=== PATIENT | female | born 1950 | race Caucasian/White ===

== ENCOUNTER 2016-09-23 09:47 | Emergency (ER) | payer MEDICARE, OTHER ==
[~2016-09-23] VITALS: Ht 162.6 cm; Wt 79.8 kg
[2016-09-23 09:50] VITALS: BP 134/82
[2016-09-23] MEDS ORDERED: ASPIRIN81 MG PO (10:02)
[2016-09-23] MEDS ORDERED: VITAMIN D5000 UNIT PO (10:02)
[2016-09-23] MEDS ORDERED: FOSINOPRIL20 MG PO (10:03)
[2016-09-23] MEDS ORDERED: METFORMIN500 MG PO (10:04)
[2016-09-23] MEDS ORDERED: VESICARE5 M1 PO (10:05)
[2016-09-23] MEDS ORDERED: CRESTOR5 M1 PO (10:05)
[2016-09-23] MEDS ORDERED: LABETALOL HCL100 MG PO (10:06)
[2016-09-23] MEDS ORDERED: PRILOSEC20 MG/CAP PO (10:06)
== END 2016-09-23 10:31 | disposition home or self-care (01) ==
LOC: ED 09:47
DX: S09.90XA Unspecified injury of head, initial encounter (principal); S80.11XA Contusion of right lower leg, initial encounter; W01.10XA Fall on same level from slipping, tripping and stumbling with subsequent striking against unspecified object, initial encounter; Y93.89 Activity, other specified; Y92.003 Bedroom of unspecified non-institutional (private) residence as the place of occurrence of the external cause

== ENCOUNTER 2017-05-07 21:43 | Emergency (ER) | payer MEDICARE, OTHER ==
[~2017-05-07] VITALS: Ht 162.6 cm; Wt 77.4 kg
[~2017-05-07 21:43] MED LIST: ASPIRIN81 MG PO; CRESTOR5 M1 PO; FOSINOPRIL20 MG PO; LABETALOL HCL100 MG PO; METFORMIN500 MG PO; PRILOSEC20 MG/CAP PO; VESICARE5 M1 PO; VITAMIN D5000 UNIT PO
[2017-05-07 23:46] LABS: URINE BILIRUBIN - DIPSTICK NEGATIVE (NEGATIVE); URINE BLOOD DIPSTICK TRACE-INTACT (NEGATIVE); URINE COLOR YELLOW; URINE GLUCOSE - DIPSTICK NEGATIVE (NEGATIVE); URINE KETONE NEGATIVE (NEGATIVE); URINE PROTEIN - DIPSTICK NEGATIVE (NEG-TRACE); URINE SPECIFIC GRAVITY <=1.005; URINE UROBILINOGEN - DIPSTICK 0.2 E.U./dL (0.2)
[2017-05-07 23:46] LABS: HEMATOCRIT 35.9 % (37.0-47.0); HEMOGLOBIN 11.3 g/dl (12.0-16.0); IMMATURE GRANULOCYTES 0.2 % (0.0-1.0); MEAN CORPUSCULAR HGB 25.8 pG CALC (26.0-32.0); MEAN CORPUSCULAR HGB CONC 31.5 g/L CALC (32.0-36.0); NEUT# 5.61 thou/uL (2.00-7.15); RED BLOOD COUNT 4.38 mill/uL (4.20-5.60); RED CELL DISTRI WIDTH 15.9 % (11.5-15.5)
[2017-05-07 23:47] LABS: URINE CLARITY CLOUDY; URINE LEUK ESTERASE MODERATE (NEGATIVE); URINE NITRITE - DIPSTICK POSITIVE (Negative)
[2017-05-07 23:55] LABS: URINE BACTERIA MODERATE hpf; URINE MUCUS FEW hpf (NONE-FEW); URINE SQUAMOUS EPITHELIAL CELL FEW EPI/hpf (0-FEW)
[2017-05-08 00:03] LABS: PROTHROMBIN TIME 10.8 SECONDS (9.0-12.5)
[2017-05-08 00:05] LABS: ALBUMIN 4.2 g/dL (3.2-5.0); ALKALINE PHOSPHATASE 105 u/l (38-126); ANION GAP 17 (6-22 (CALC)); BILIRUBIN, TOTAL 0.3 mg/dL (0.0-1.4); BUN 13 mg/dL (8-23); BUN/CREATININE RATIO 21 (12-20 (CALC)); CALCIUM 9.9 mg/dL (8.4-10.2); CARBON DIOXIDE 24 mmol/l (22-30); CHLORIDE 103 mmol/l (95-108); CREATININE 0.7 mg/dL (0.5-1.0); GFR > 60 ML/MIN (>=60 (CALC)); GFR FOR AFR.AMER. > 60 ML/MIN (>=60 (CALC)); GLUCOSE 127 mg/dL (82-115); POTASSIUM 4.2 mmol/l (3.5-5.1); SGOT/AST 47 u/l (9-36); SGPT/ALT 42 u/l (11-66); SODIUM 140 mmol/l (137-146); TOTAL PROTEIN 7.3 g/dL (6.3-8.2)
[2017-05-08] MEDS ORDERED: MEDDOSEPAK PO (00:38)
[2017-05-08] MEDS ORDERED: BENADRYL 50MG C50 MG PO (00:38)
[2017-05-08] MEDS ORDERED: CIPROFLOXACN500 MG PO (04:13)
[2017-05-08 04:21] VITALS: BP 145/71
== END 2017-05-08 01:18 | disposition home or self-care (01) ==
LOC: ED 21:43
PROVIDERS: Emergency Medicine
DX: I77.6 Arteritis, unspecified (principal); N39.0 Urinary tract infection, site not specified; B96.4 Proteus (mirabilis) (morganii) as the cause of diseases classified elsewhere

== ENCOUNTER 2017-05-20 04:06 | Observation (INO) | payer MEDICARE, OTHER ==
[~2017-05-20] VITALS: Ht 162.6 cm; Wt 75.0 kg
[~2017-05-20 04:06] MED LIST changes: +BENADRYL 50MG C50 MG PO; +CIPROFLOXACN500 MG PO; +MEDDOSEPAK PO
--- NOTE | 2017-05-20 04:10 | NUR ---
PATIENT TO TREATMENT AREA. UNDRESSED INTO A GOWN. PLACED ON MONITOR. TRIAGE COMPLETED AT BEDSIDE. AWAITING MD STONE.
[2017-05-20] MEDS ORDERED: AMLODIPINE5 MG PO (04:30)
[2017-05-20] MEDS ORDERED: CALTRATE 600+D1 CHW PO (04:32)
[2017-05-20 05:17] LABS: URINE BILIRUBIN - DIPSTICK NEGATIVE (NEGATIVE); URINE BLOOD DIPSTICK NEGATIVE (NEGATIVE); URINE COLOR YELLOW; URINE GLUCOSE - DIPSTICK NEGATIVE (NEGATIVE); URINE KETONE NEGATIVE (NEGATIVE); URINE LEUK ESTERASE NEGATIVE (NEGATIVE); URINE PROTEIN - DIPSTICK NEGATIVE (NEG-TRACE); URINE UROBILINOGEN - DIPSTICK 0.2 E.U./dL (0.2)
[2017-05-20 05:18] LABS: URINE CLARITY CLOUDY; URINE NITRITE - DIPSTICK POSITIVE (Negative)
[2017-05-20 05:23] LABS: URINE RBC 0-2 RBC/hpf (0-5); URINE SQUAMOUS EPITHELIAL CELL FEW EPI/hpf (0-FEW)
[2017-05-20 05:24] LABS: URINE BACTERIA MODERATE hpf; URINE MUCUS FEW hpf (NONE-FEW)
[2017-05-20 05:25] LABS: HEMATOCRIT 36.5 % (37.0-47.0); HEMOGLOBIN 11.5 g/dl (12.0-16.0); IMMATURE GRANULOCYTES 1.6 % (0.0-1.0); MEAN CELL VOLUME 81.1 fL CALC (80.0-100.0); MEAN CORPUSCULAR HGB 25.6 pG CALC (26.0-32.0); MEAN CORPUSCULAR HGB CONC 31.5 g/L CALC (32.0-36.0); NEUT# 8.85 thou/uL (2.00-7.15); RED BLOOD COUNT 4.5 mill/uL (4.20-5.60); RED CELL DISTRI WIDTH 16.3 % (11.5-15.5)
[2017-05-20 05:29] LABS: ALBUMIN 4.3 g/dL (3.2-5.0); ALKALINE PHOSPHATASE 106 u/l (38-126); AMYLASE 57 u/l (30-110); ANION GAP 18 (6-22 (CALC)); BILIRUBIN, TOTAL 0.4 mg/dL (0.0-1.4); BUN 10 mg/dL (8-23); BUN/CREATININE RATIO 15 (12-20 (CALC)); CALCIUM 10.1 mg/dL (8.4-10.2); CARBON DIOXIDE 24 mmol/l (22-30); CHLORIDE 104 mmol/l (95-108); CREATININE 0.7 mg/dL (0.5-1.0); GFR > 60 ML/MIN (>=60 (CALC)); GFR FOR AFR.AMER. > 60 ML/MIN (>=60 (CALC)); GLUCOSE 141 mg/dL (82-115); LIPASE 85 u/l (23-300); POTASSIUM 3.9 mmol/l (3.5-5.1); SGOT/AST 33 u/l (9-36); SGPT/ALT 37 u/l (11-66); SODIUM 142 mmol/l (137-146); TOTAL PROTEIN 7.6 g/dL (6.3-8.2)
[2017-05-20 05:42] LABS: MYOGLOBIN 23 ng/mL (0 - 62)
--- NOTE | 2017-05-20 06:14 | NUR ---
MED/SURG REFUSED REPORT FOR RM 262
--- NOTE | 2017-05-20 06:20 | NUR ---
NURSING HEATING ELEMENT WINDER CALLED, RM CHANGED TO ICU OVERFLOW. ICU REFUSED REPORT.
--- NOTE | 2017-05-20 06:27 | NUR ---
PT RELATED SLIGHT CHEST DISCOMFORT REMAINS. NO DISTRESS NOTED.
--- NOTE | 2017-05-20 06:58 | NUR ---
REPORT CALLED TO [facility].
[2017-05-20 07:00] VITALS: BP 104/68
--- NOTE | 2017-05-20 07:00 | NUR ---
PT TO ROOM VIA STRETCHER ACCOMPANIED BY STAFF; PT AMBULATORY TO BED WITH STAND BY ASSIST; PT A/O X3; PT C/O EPIGASTRIC AND MID BACK PAIN "ACHY" PAIN 5/10, WILL NOTIFY MD FOR ORDERS; VS AND WT OBTAINED; PT ORIENTED TO ROOM AND CALL SYSTEM; LUNGS CLEAR THROUGHOUT; UROSTOMY IN PLACE, MODERATE AMOUNT OF CLEAR YELLOW URINE NOTED; PT ORIENTED TO ROOM AND CALL SYSTEM; CALL DALY WITHIN REACH; WILL CONTINUE TO MONITOR.
--- NOTE | 2017-05-20 07:05 | NUR ---
PT TO ICU 6 WITH RN ON MONITOR.
--- NOTE | 2017-05-20 09:19 | NUR ---
DR. AGUILAR IN TO SEE PT; PLAN OF CARE DISCUSSED
[2017-05-20 11:46] VITALS: BP 117/69
--- NOTE | 2017-05-20 12:12 | NUR ---
ELECTRICAL PROSPECTING OBSERVER IN FOR BLOOD DRAW
--- NOTE | 2017-05-20 14:29 | NUR ---
SPOUSE IN WITH PT; UROSTOMY DEVICE CHANGE BY SPOUSE; NO COMPLAINTS VOICED AT THIS TIME; WILL CONTINUE TO MONITOR.
--- NOTE | 2017-05-20 15:30 | NUR ---
PT TRANSFERED TO ROOM 262 VIA WC ACCOMPANIED BY STAFF; REPORT GIVEN TO RUDY FRANCO
[2017-05-20 15:38] VITALS: BP 114/76
--- NOTE | 2017-05-20 16:08 | NUR ---
PT ARRIVED TO FLOOR @ 1532 VIA WHEELCHAIR ACCOMPANIED BY KRISTIN MCKEE. PT AMBULATES WITH STANDBY ASSIST. REPORTS MILD EPIGASTRIC DISCOMFORT, MUCH RELIEVED SINCE MAALOX ADMINISTRATION. OTHERWISE NO COMPLAINTS. PT ORIENTED TO ROOM AND EQUIPMENT. PLAN OF CARE DISCUSSED. CALL LIGHT REVIEWED AND IN REACH. PT STATES UNDERSTANDING.
--- NOTE | 2017-05-20 16:37 | NUR ---
Patient said they feel better with the chest pain. Patient also told me that they just had a UTI a short time ago. c
[2017-05-20 19:00] VITALS: BP 110/73
--- NOTE | 2017-05-20 19:45 | NUR ---
BEDSIDE REPORT RECEIVED FROM RUDY FRANCO. PT RESTING IN BED WATCHING TV. ALERT AND ORIENTED X 3. DENIES PAIN CURRENTLY. RESPIRATIONS EVEN AND UNLABORED. UROSTOMY SITE CLEAR AND DRESSING CDI. ATTACHED TO BSDB AT THIS TIME DAJA CLEAR YELLOW URINE WITH SEDIMENT IN ADEQUATE AMOUNTS. STATES THAT THIS IS NORMAL FOR HER. PLAN OF CARE DISCUSSED. PT ENCOURAGED TO VERBALIZE CONCERNS. STATES UNDERSTANDING. SAFETY MEAURES IN PLACE. CALL LIGHT SYSTEM REVIEWED AND IN REACH.
[2017-05-20 22:13] LABS: INFLUENZA A NONE DETECTED (NONE DETECT); INFLUENZA B NONE DETECTED (NONE DETECT)
--- NOTE | 2017-05-21 | NUR ---
PT ASLEEP AT THIS TIME WITH NO SIGNS OF DISTRESS. RESPIRATIONS EVEN AND UNLABORED. IV SITE APPEARS HEALTHY AND FLUSHES. FLU AND STREP SCREENS ORDERED AND ARE NEGATIVE. NO REQUESTS FROM PT. SAFETY MEASURES IN PLACE. CALL LIGHT WITHIN REACH.
[2017-05-21 00:43] VITALS: BP 84/58
[2017-05-21 04:10] VITALS: BP 88/56
--- NOTE | 2017-05-21 05:20 | NUR ---
PT ASLEEP AT THIS TIME WITH NO SIGNS OF DISTRESS. AWAKENS SPONTANEOUSLY. HAS NO REQUESTS AT THIS TIME. NO ACUTE CHANGES THROUGHOUT THE NIGHT. UROSTOMY BAD CONTINUES TO DRAIN CLEAR YELLOW URINE IN ADEQUATE AMOUNTS. SAFETY MEASURES IN PLACE. CALL LIGHT WITHIN REACH.
[2017-05-21 06:19] LABS: HEMATOCRIT 33.6 % (37.0-47.0); HEMOGLOBIN 10.7 g/dl (12.0-16.0); IMMATURE GRANULOCYTES 0.4 % (0.0-1.0); MEAN CELL VOLUME 80.2 fL CALC (80.0-100.0); MEAN CORPUSCULAR HGB 25.5 pG CALC (26.0-32.0); MEAN CORPUSCULAR HGB CONC 31.8 g/L CALC (32.0-36.0); NEUT# 9.08 thou/uL (2.00-7.15); RED BLOOD COUNT 4.19 mill/uL (4.20-5.60); RED CELL DISTRI WIDTH 16.5 % (11.5-15.5)
[2017-05-21 06:34] LABS: ANION GAP 16 (6-22 (CALC)); BUN 10 mg/dL (8-23); BUN/CREATININE RATIO 15 (12-20 (CALC)); CALCIUM 9.1 mg/dL (8.4-10.2); CARBON DIOXIDE 23 mmol/l (22-30); CHLORIDE 102 mmol/l (95-108); CREATININE 0.7 mg/dL (0.5-1.0); GFR > 60 ML/MIN (>=60 (CALC)); GFR FOR AFR.AMER. > 60 ML/MIN (>=60 (CALC)); GLUCOSE 111 mg/dL (82-115); MAGNESIUM 1.9 mg/dL (1.6-2.3); POTASSIUM 4.3 mmol/l (3.5-5.1); SODIUM 137 mmol/l (137-146)
[2017-05-21 07:28] VITALS: BP 106/66
--- NOTE | 2017-05-21 07:39 | NUR ---
BEDSIDE REPORT RECEIVED FROM CASTILLO COLE. PT SITTING UPRIGHT IN BED. REPORTS SOME RELIEF FROM RECENT ULTRAM ADMINISTRATION, SOME EPIGASTRIC DISCOMFORT STILL THERE. REPORTING OF CONCERNS ENCOURAGED. PLAN OF CARE DISCUSSED. CALL LIGHT REVIEWED AND IN REACH. PT STATES UNDERSTANDING.
[2017-05-21 11:00] VITALS: BP 97/55
--- NOTE | 2017-05-21 11:00 | NUR ---
DR. AGUILAR IN TO SEE PT AT THIS TIME.
[2017-05-21 16:00] VITALS: BP 103/49
--- NOTE | 2017-05-21 16:14 | NUR ---
PT SITTING UPRIGHT IN BED. AT BEDSIDE. REPORTS RELIEF OF HEADACHE FROM PREVIOUS TYLENOL PO ADMINISTRATION. REPORTING OF FURTHER CONCERNS ENCOURAGED. PT STATES UNDERSTANDING.
--- NOTE | 2017-05-21 19:15 | NUR ---
BEDSIDE REPORT RECEIVED FROM RUDY FRANCO;PT RESTING IN SEMI FOWLERS POSITION WATCHING TV;POC DISCUSSED AND PT VERBALIZES UNDERSTANDING;PT DENIES ANY PAIN OR DISCOMFORTS;FALL PRECAUTIONS IN PLACE WITH CALL LIGHT IN REACH;WILL CONTINUE TO MONITOR
[2017-05-21 19:20] VITALS: BP 106/67
--- NOTE | 2017-05-21 20:40 | NUR ---
PT RESTING IN BED WATCHING TV;RESPIRATIONS EVEN AND UNLABORED ON RA;CLEAR LUNG SOUNDS NOTED;A&O X3;ASSESSMENT COMPLETED;TELE MONITOR IN PLACE;PT VOICES NO ABDOMINAL PAIN OR DISCOMFORTS;ABDOMEN SOFT ON PALPATION;#20G TO LAC INFUSING NS @150ML/HR WELL,SITE APPEARS HEALTHY;@2100 LABETALOL HELD THIS EVENING FOR BP OF 106/67;SKIN INTACT;SNACK PROVIDED PER PT REQUEST;PT DENIES ANY OTHER NEEDS AT THIS TIME;SAFETY PRECAUTIONS REINFORCED WITH BED IN THE LOWEST POSITION;CALL LIGHT IN REACH;WILL CONTINUE TO MONITOR
[2017-05-22 00:09] VITALS: BP 101/65
--- NOTE | 2017-05-22 00:10 | NUR ---
PT RESTING IN SEMI FOWLERS POSITION WATCHING TV;PT VOICES NO COMPLAINTS OF PAIN;RESPIRATIONS EVEN AND UNLABORED ON RA;TELE MONITOR IN PLACE;IV FLUIDS INFUSING WELL TO LAC;PT ENCOURAGED TO CALL FOR ASSISTANCE IF NEEDED;CALL LIGHT IN REACH;WILL CONTINUE TO MONITOR
--- NOTE | 2017-05-22 05:40 | NUR ---
PT VOICES NO COMPLAINTS OF PAIN THIS MORNING;PT WATCHING TV;RESPIRATIONS EVEN AND UNLABORED ON RA;IV FLUIDS INFUSING WITHOUT DIFFICULTY TO LAC;TELE MONITOR IN PLACE;UROSTOMY PATENT DRAINING CLEAR/YELLOW URINE;FALL PRECAUTIONS IN PLACE WITH CALL LIGHT IN REACH;WILL CONTINUE TO MONITOR
[2017-05-22 05:45] VITALS: BP 109/68
--- NOTE | 2017-05-22 06:50 | NUR ---
Received report from Sanchez Pfeiffer Pt. is laying in bed asleep. Pt is aroused easily and has no concerns at this time. Will continue to monitor.
[2017-05-22 07:00] VITALS: BP 128/78
--- NOTE | 2017-05-22 07:00 | NUR ---
RECEIVED BEDSIDE REPORT FROM HILARY CHONG. RESTING IN BED WATCHING TV. RESPS EVEN AND UNLABORED ON ROOM AIR, TELE MONITOR IN PLACE. UROSTOMY PATENT, DRAINING TO GRAVITY TO BEDSIDE BAG. DENIES PAIN OR DISCOMFORT. PLAN OF CARE DISCUSSED. SAFETY PRECAUTIONS REINFORCED. BED IN LOWEST POSITION WITH WHEELS LOCKED. CALL LIGHT WITHIN REACH. WILL CONTINUE TO MONITOR.
--- NOTE | 2017-05-22 07:15 | NUR ---
PT. IS SITTING IN BED WATCHING TV. PT IS ORIENTED X3. PUPILS ARE BRISK, 3MM. PERRLA. ALL LUNG [place] ARE CLEAR, AND BREATHING IS NONLABORED. BOWEL SOUNDS ARE ACTIVE IN ALL FOUR QUADRANTS. PT DOES HAVE A UROSTOMY IN THE RIGHT LOWER QUADRANT. UROSTOMY SITE IS FREE FROM IRRITATION OR REDNESS. UROSTOMY IS DRAINING CLEAR YELLOW URINE WITH WHITE SEDIMENT. PT. ATTENDS TO HER UROSTOMY CARE AND IT WAS LAST DRESSED ON 05/21/17. NO DRAINAGE NOTED.TELE IN PLACE. PT HAS A 20 LAC. IV SITE IS PATENT AND FREE FROM COMPLICATIONS. RADIAL AND PEDAL PULSES ARE STRONG. LOWER EXTREMETIES ARE FREE FROM EDEMA. PATIENT REQUESTED TO SIT UP IN HER CHAIR. CALL LIGHT WITHIN REACH. WILL CONTINUE TO MONITOR. EXTREMETIES ARE FREE FROM EDEMA.
--- NOTE | 2017-05-22 10:45 | NUR ---
AMBULATING IN HALLWAY WITH PHYSICAL THERAPY.
[2017-05-22 11:20] VITALS: BP 110/70
--- NOTE | 2017-05-22 12:18 | NUR ---
awake; up to recliner; spouse at bedside; pt offers no complaints; denies needs; iv patent; call light within reach; will continue to monitor
--- NOTE | 2017-05-22 12:30 | NUR ---
Dr Jolly and INDRA Triana at bedside to discuss plan of care
--- NOTE | 2017-05-22 12:45 | NUR ---
report received from Candace Sigala RN; care assumed
[2017-05-22] MEDS ORDERED: DOXYCYC MONO100 M2 PO (13:17)
--- NOTE | 2017-05-22 14:15 | NUR ---
discharge instructions reviewed; Rx provided for doxycycline; pt request to speak with INDRA Triana; will continue to monitor
--- NOTE | 2017-05-22 14:35 | NUR ---
INDRA Triana at bedside
--- NOTE | 2017-05-22 14:40 | NUR ---
Discharge instructions given. Patient verbalizes understanding of same. Discharged in stable condition via Wheelchair to Home with spouse. All belongings sent with pt.
== END 2017-05-22 14:40 | disposition home or self-care (01) ==
LOC: ED 04:06 → ED-I 06:03 → ED 06:16 → MS2 06:17 → ICU 06:17 → MS2 15:34
PROVIDERS: Emergency Medicine; Nurse Practitioner Family; ADMIT Internal Medicine; ATTEND Internal Medicine
DX: R10.13 Epigastric pain (principal); I10 Essential (primary) hypertension; E11.9 Type 2 diabetes mellitus without complications; K21.9 Gastro-esophageal reflux disease without esophagitis; N39.0 Urinary tract infection, site not specified; E78.5 Hyperlipidemia, unspecified; B95.7 Other staphylococcus as the cause of diseases classified elsewhere; Z85.51 Personal history of malignant neoplasm of bladder; Z90.6 Acquired absence of other parts of urinary tract; Z93.6 Other artificial openings of urinary tract status; R07.9 Chest pain, unspecified; Z79.84 Long term (current) use of oral hypoglycemic drugs
CPT/HCPCS: S0164

== ENCOUNTER 2018-03-10 11:14 | Emergency (ER) | payer MEDICARE, OTHER ==
[~2018-03-10] VITALS: Ht 162.6 cm; Wt 76.4 kg
[~2018-03-10 11:14] MED LIST changes: +AMLODIPINE5 MG PO; +CALTRATE 600+D1 CHW PO; +DOXYCYC MONO100 M2 PO
[2018-03-10] MEDS ORDERED: FOSINOPRIL40 MG PO (12:02)
[2018-03-10] MEDS ORDERED: AMOXICILLIN500 MG PO (12:04)
[2018-03-10 12:44] VITALS: BP 123/79
== END 2018-03-10 12:44 | disposition home or self-care (01) ==
LOC: ED 11:14
DX: J06.9 Acute upper respiratory infection, unspecified (principal); R10.84 Generalized abdominal pain; I10 Essential (primary) hypertension; E11.9 Type 2 diabetes mellitus without complications; E78.5 Hyperlipidemia, unspecified; K21.9 Gastro-esophageal reflux disease without esophagitis; Z93.2 Ileostomy status; Z85.51 Personal history of malignant neoplasm of bladder

== ENCOUNTER → 2018-06-29 | Outpatient (REF) | payer MEDICARE, OTHER ==
[~2018-06-29] MED LIST changes: +AMOXICILLIN500 MG PO; +FOSINOPRIL40 MG PO
[2018-06-29 08:50] LABS: CHOLESTEROL HDL RATIO 2.8 (<4.4 (CALC))
[2018-06-29 09:14] LABS: HEMATOCRIT 41.2 % (37.0-47.0); HEMOGLOBIN 13.3 g/dl (12.0-16.0)
== END | disposition home or self-care (01) ==
LOC: LAB 07:20
PROVIDERS: ATTEND Internal Medicine
DX: C67.1 Malignant neoplasm of dome of bladder (principal); E11.8 Type 2 diabetes mellitus with unspecified complications; E78.49 Other hyperlipidemia; I10 Essential (primary) hypertension; D64.9 Anemia, unspecified; R74.8 Abnormal levels of other serum enzymes; D32.9 Benign neoplasm of meninges, unspecified; E78.5 Hyperlipidemia, unspecified

== ENCOUNTER 2022-07-21 15:42 | Emergency (ER) | payer MEDICARE, OTHER ==
[~2022-07-21] VITALS: Ht 162.6 cm; Wt 79.8 kg
[2022-07-21] VITALS (11 sets, daily range): BP systolic 106–123; BP diastolic 55–74
[2022-07-21 16:34] LABS: BASO% 0.9 % (0-3); EOS% 5.5 % (0-8); IMMATURE GRANULOCYTES 0.2 % (0.0-5.0); LYMPH% 13.6 % (15-41); MEAN CELL VOLUME 96.2 fL CALC (80.0-100.0); MEAN CORPUSCULAR HGB 31.3 pG CALC (26.0-32.0); MEAN CORPUSCULAR HGB CONC 32.6 g/dL CAL (32.0-36.0); MONO% 11.1 % (2-13); NEUT# 3.23 thou/uL (2.00-7.15); NEUT% 68.7 % (42-76); RED BLOOD COUNT 3.67 mill/uL (4.20-5.60); RED CELL DISTRI WIDTH 14.5 % (11.5-15.5)
[2022-07-21 16:49] LABS: ALBUMIN 3.7 g/dL (3.2-5.0); ALKALINE PHOSPHATASE 116 u/l (38-126); ANION GAP 16 (6-22 (CALC)); BILIRUBIN, TOTAL 1.3 mg/dL (0.02-1.3); BUN 13 mg/dL (8-23); BUN/CREATININE RATIO 17 (12-20 (CALC)); CARBON DIOXIDE 18 mmol/l (22-30); CHLORIDE 107 mmol/l (95-108); CREATININE 0.7 mg/dL (0.5-1.0); GFR FOR AFR.AMER. > 60 ML/MIN (>=60 (CALC)); GFR OTHER RACES > 60 ML/MIN (>=60 (CALC)); POTASSIUM 4.4 mmol/l (3.5-5.1); SGOT/AST 53 u/l (9-36); SODIUM 136 mmol/l (137-146); TOTAL PROTEIN 6.9 g/dL (6.3-8.2)
[2022-07-21 16:52] LABS: HEMATOCRIT 35.3 % (37.0-47.0); HEMOGLOBIN 11.5 g/dl (12.0-16.0)
[2022-07-21] MEDS ORDERED: TORADOL PO (20:53)
[2022-07-21] MEDS ORDERED: ACETAMINOPHEN500 M1 PO (20:53)
== END 2022-07-21 21:20 | disposition home or self-care (01) ==
LOC: ED 15:42
PROVIDERS: Family Medicine
DX: R07.89 Other chest pain (principal); I10 Essential (primary) hypertension; E11.9 Type 2 diabetes mellitus without complications; K21.9 Gastro-esophageal reflux disease without esophagitis; E78.5 Hyperlipidemia, unspecified; Z93.2 Ileostomy status
CPT/HCPCS: Q9967

== ENCOUNTER 2023-06-10 21:00 | Emergency (ER) | payer MEDICARE, OTHER ==
[~2023-06-10] VITALS: Ht 162.6 cm; Wt 87.0 kg
[~2023-06-10 21:00] MED LIST changes: +ACETAMINOPHEN500 M1 PO; +TORADOL PO
[2023-06-11] MEDS ORDERED: DEXAMETHASONE SOD. PHOSPHATE 10 MG/ML VIAL IV ONE (00:30)
[2023-06-11 02:00] LABS: BASO% 0.6 % (0-3); EOS% 4.9 % (0-8); HEMATOCRIT 24.2 % (37.0-47.0); HEMOGLOBIN 7.9 g/dl (12.0-16.0); IMMATURE GRANULOCYTES 0.1 % (0.0-5.0); MEAN CELL VOLUME 99.2 fL CALC (80.0-100.0); MEAN CORPUSCULAR HGB 32.4 pG CALC (26.0-32.0); MEAN CORPUSCULAR HGB CONC 32.6 g/dL CAL (32.0-36.0); NEUT# 6.06 thou/uL (2.00-7.15); NEUT% 76.4 % (42-76); RED BLOOD COUNT 2.44 mill/uL (4.20-5.60); RED CELL DISTRI WIDTH 16.2 % (11.5-15.5)
[2023-06-11 02:02] LABS: ALBUMIN 2.9 g/dL (3.2-5.0); ALKALINE PHOSPHATASE 145 u/l (38-126); ANION GAP 9 (6-22 (CALC)); BILIRUBIN, TOTAL 1.8 mg/dL (0.02-1.3); BUN 21 mg/dL (8-23); BUN/CREATININE RATIO 24 (12-20 (CALC)); CARBON DIOXIDE 18 mmol/l (22-30); CHLORIDE 111 mmol/l (95-108); CREATININE 0.9 mg/dL (0.5-1.0); GFR FOR AFR.AMER. > 60 ML/MIN (>=60 (CALC)); GFR OTHER RACES > 60 ML/MIN (>=60 (CALC)); POTASSIUM 4.1 mmol/l (3.5-5.1); SGOT/AST 40 u/l (9-36); SODIUM 134 mmol/l (137-146); TOTAL PROTEIN 5.8 g/dL (6.3-8.2)
[2023-06-11 05:10] VITALS: BP 126/68
== END 2023-06-11 05:11 | disposition short-term general hospital (02) ==
LOC: ED 21:00 → ED-I 06-11 00:21 → ED 06-11 05:11
PROVIDERS: Emergency Medicine
DX: D32.0 Benign neoplasm of cerebral meninges (principal); G93.6 Cerebral edema; S00.81XA Abrasion of other part of head, initial encounter; S00.83XA Contusion of other part of head, initial encounter; I10 Essential (primary) hypertension; E11.9 Type 2 diabetes mellitus without complications; E78.5 Hyperlipidemia, unspecified; K21.9 Gastro-esophageal reflux disease without esophagitis; W18.39XA Other fall on same level, initial encounter; Y92.009 Unspecified place in unspecified non-institutional (private) residence as the place of occurrence of the external cause; Z85.51 Personal history of malignant neoplasm of bladder; Z90.6 Acquired absence of other parts of urinary tract; Z88.2 Allergy status to sulfonamides; Z93.2 Ileostomy status; Z79.84 Long term (current) use of oral hypoglycemic drugs

== ENCOUNTER 2023-06-22 21:49 | Observation (INO) | payer MEDICARE, OTHER ==
[~2023-06-22] VITALS: Ht 162.6 cm; Wt 88.5 kg
[~2023-06-22 21:49] MED LIST changes: -FOSINOPRIL40 MG PO; +METFORMIN HYDR850 MG PO; -METFORMIN500 MG PO; +MONOPRIL10 MG PO
--- NOTE | 2023-06-22 21:49 | NUR ---
PATIENT TO RM 2 VIA EMS AT THIS TIME, PATIENT ARRIVES ALERT AND ORIENTED TO SELF AT THIS TIME, PER EMS THIS IS PATIENT'S BASELINE, PATIENT HAS NOTED BRUISING TO HEAD AND UPPER EXTREMITIES, PATIENT UNABLE TO VERBALIZE TIME, PLACE, OR SITUATION AT THIS TIME. PATIENT VOICES NO COMPLAINTS, EKG TKN, PATIENT CONNECTED TO CONTINUOUS MONITORING, AWAITING MD STOEN, PATIENT IS POOR HISTORIAN, TRIAGE COMPLETE.
[2023-06-22 21:57] VITALS: BP 128/58
[2023-06-22 22:00] VITALS: BP 114/59
[2023-06-22 22:20] VITALS: BP 128/68
--- NOTE | 2023-06-22 23:10 | NUR ---
PATIENT UPDATED ON CONTINUOUS PLAN OF CARE WITH NO FURTHER QUESTIONS OR CONCERNS AT THIS TIME, LABS DRAWN, AWAITNG CT SCANS AND XRAYS AT THIS TIME, PATIENT VOICES NO FURTHER QUESTIONS OR CONCERNS AT THIS TIME, NO COMPLINTS OR DISCOMFORT.
[2023-06-22 23:20] VITALS: BP 122/58
[2023-06-22 23:24] LABS: BASO% 0.3 % (0-3); EOS% 3.1 % (0-8); HEMATOCRIT 29.4 % (37.0-47.0); HEMOGLOBIN 9.6 g/dl (12.0-16.0); IMMATURE GRANULOCYTES 0.7 % (0.0-5.0); MEAN CELL VOLUME 100.7 fL CALC (80.0-100.0); MEAN CORPUSCULAR HGB 32.9 pG CALC (26.0-32.0); MEAN CORPUSCULAR HGB CONC 32.7 g/dL CAL (32.0-36.0); MONO% 9.2 % (2-13); NEUT# 9.63 thou/uL (2.00-7.15); NEUT% 78.7 % (42-76); RED BLOOD COUNT 2.92 mill/uL (4.20-5.60); RED CELL DISTRI WIDTH 16.7 % (11.5-15.5)
[2023-06-22 23:44] LABS: ALKALINE PHOSPHATASE 178 u/l (38-126); ANION GAP 14 (6-22 (CALC)); BILIRUBIN, TOTAL 2.5 mg/dL (0.02-1.3); BUN 23 mg/dL (8-23); BUN/CREATININE RATIO 26 (12-20 (CALC)); CARBON DIOXIDE 16 mmol/l (22-30); CHLORIDE 106 mmol/l (95-108); CREATININE 0.9 mg/dL (0.5-1.0); GFR FOR AFR.AMER. > 60 ML/MIN (>=60 (CALC)); GFR OTHER RACES > 60 ML/MIN (>=60 (CALC)); POTASSIUM 4.3 mmol/l (3.5-5.1); SGOT/AST 47 u/l (9-36); SODIUM 132 mmol/l (137-146); TOTAL PROTEIN 5.9 g/dL (6.3-8.2)
[2023-06-23] VITALS (37 sets, daily range): BP systolic 97–122; BP diastolic 46–61
[2023-06-23 00:02] LABS: INTERNATIONAL NORMALIZED RATIO 1.3 RATIO (0.7-1.3)
--- NOTE | 2023-06-23 00:10 | NUR ---
SPOKE WITH REGARDING PATIENT'S SITUATION AT THIS TIME, VOICES TONIGHT PATIENT BEGAN WITH INCREASED WEAKNESS AND CONFUSION. VOICES PATIENT'S CONFUSION IS AT BASELINE, STATES F/U APPT IS 07/02/23 WITH NUEROLOGIST PERTAINING TO A MASS OF THE BRAIN. MD NOTIFIED OF PATIENT STATUS AND SITUATION, PATIENT REMAINS ALERT AND ORIENTED TO SELF AT THIS TIME, PATIENT VOICES NO C/O PAIN/DISCOMFORT AT THIS TIME.
--- NOTE | 2023-06-23 00:35 | NUR ---
SPOKE WITH MD PERTAINING TO URINE SPECIMEN, WILL BE UNABLE TO GATHER ACCURATE URINE DUE TO ILEOSTOMY, MD VERBALIZES CNC URINE.
--- NOTE | 2023-06-23 00:55 | NUR ---
AT BEDSIDE FOR DISCUSSION OF RESULTS AND PLAN OF CARE.
[2023-06-23] MEDS ORDERED: SODIUM CHLORIDE 0.9% 1,000 ML IV PRN (01:10)
[2023-06-23] MEDS ORDERED: MAGNESIUM HYDROXIDE 30 ML UDC PO PRN (01:30)
[2023-06-23] MEDS ORDERED: ACETAMINOPHEN 325 MG/TAB PO PRN (01:30)
--- NOTE | 2023-06-23 03:00 | NUR ---
PATIENT TRANSFERRED TO MS2 BED AT THIS TIME, UPDATED ON CONTINUOUS PLAN OF CARE, PATIENT REMAINS ALERT AND ORIENTED TO SELF AT THIS TIME, PATIENT VOICES UNDERSTANDING WITH NO FURTHER QUESTIONS OR CONCERNS AT THIS TIME.
[2023-06-23] MEDS ORDERED: SODIUM BICARBI650 MG PO (03:09)
--- NOTE | 2023-06-23 07:15 | NUR ---
female pt received to MST/ICU OF; no apparent distress noted; admission assessment completed at this time; pt alert and oriented; denies pain; no n/v noted; resp even and unlabored; lungs clear; skin color wnl; ra; oil pumper cough noted; hr reg; strong pulses; 1+ edema noted to ble; tele monitor in placed; abd soft with bs present; no bm noted per continuity writer; urostomy noted to right abd with sediment foul urine; care per spouse; #20 to lh saline locked; no redness or edema noted at site; bruising noted to left face and left arm; redness/ excoriation noted to abd folf and bilat groin folds; adult brief cdi; plan of care/meds explained; spouse at bedside; bed alarm set for pt safety; call light within reach; will continue to monitor
[2023-06-23] MEDS ORDERED: LOPRESSOR25 M1 PO (08:55)
[2023-06-23] MEDS ORDERED: ALDACTONE50 MG PO (08:55)
[2023-06-23] MEDS ORDERED: VITAMIN D-32000 UNI1 PO (08:55)
[2023-06-23] MEDS ORDERED: KLOR-CON M2020 MEQ PO (08:56)
[2023-06-23] MEDS ORDERED: LASIX 20 MG TAB20 MG PO (08:56)
[2023-06-23] MEDS ORDERED: PANTOPRAZOLE SODIUM Sesquihydr 40 MG/TAB PO SCH (10:00)
[2023-06-23] MEDS ORDERED: SODIUM BICARBONATE 650 MG TAB PO SCH (10:00)
[2023-06-23] MEDS ORDERED: ASPIRIN 81 MG/TAB PO SCH (10:00)
--- NOTE | 2023-06-23 10:06 | NUR ---
resting in bed with eyes closed; no apparent distress noted; spouse at bedide; sr on monitor; call light within reach; will continue to monitor
--- NOTE | 2023-06-23 12:13 | NUR ---
awake in bed eating lunch; spouse at bedside; offers no complaints; iv intact; st on monitor; call light within reach; will continue to monitor
--- NOTE | 2023-06-23 14:23 | NUR ---
pt resting in bed with eyes closed; spouse at bedside; call light within reach; will continue to monitor
--- NOTE | 2023-06-23 15:10 | NUR ---
Dr Lawrence at bedside to assess pt and discuss plan of care
[2023-06-23 15:45] LABS: URINE BILIRUBIN - DIPSTICK Negative (NEGATIVE); URINE BLOOD DIPSTICK Trace-intact (NEGATIVE); URINE COLOR Yellow; URINE GLUCOSE - DIPSTICK Negative (NEGATIVE); URINE KETONE Negative (NEGATIVE); URINE LEUK ESTERASE Small (NEGATIVE); URINE NITRITE - DIPSTICK Negative (Negative); URINE PROTEIN - DIPSTICK 100 mg/dL (NEG-TRACE); URINE UROBILINOGEN - DIPSTICK 0.2 E.U./dL (0.2)
[2023-06-23 15:46] LABS: URINE BACTERIA MANY hpf; URINE RBC 0-2 RBC/hpf (0-5); URINE SQUAMOUS EPITHELIAL CELL FEW EPI/hpf (0-FEW)
--- NOTE | 2023-06-23 16:12 | NUR ---
pt awake in bed; spouse at bedside; iv abt infusing; sr on monitor; call light within reach; will continue to monitor
[2023-06-23] MEDS ORDERED: CEFDINIR300 MG PO (16:17)
--- NOTE | 2023-06-23 17:00 | NUR ---
Discharge instructions given. Patient verbalizes understanding of same. Discharged in stable condition via Wheelchair to Home with spouse. All belongings sent with pt.
[2023-06-23] MEDS ORDERED: ENOXAPARIN SODIUM 40 MG/0.4 ML SYR SC SCH (21:00)
[2023-06-24] MEDS ORDERED: INFLUENZA VIRUS VAC SPLIT HIGH DOSE 2023/24 0.7 ML INJ IM SCH (09:00)
--- NOTE | 2023-06-25 14:17 | NUR ---
Discharge follow up call completed 06/25/23. Pt states she is doing well and has had no issues since discharge. Pt is taking medication given to her at discharge. Pt had a follow up appointment today with her PCP. No questions or concerns verbalized by patient at this time.
== END 2023-06-23 17:00 | disposition home health service (06) ==
LOC: ED 21:49 → ED-I 06-23 00:58 → ED 06-23 01:10 → ED-I 06-23 01:11 → ICU 06-23 07:25
PROVIDERS: Emergency Medicine; ADMIT Internal Medicine; ATTEND Internal Medicine
DX: R41.0 Disorientation, unspecified (principal); R53.1 Weakness; D43.2 Neoplasm of uncertain behavior of brain, unspecified; N39.0 Urinary tract infection, site not specified; S00.83XA Contusion of other part of head, initial encounter; I10 Essential (primary) hypertension; E11.9 Type 2 diabetes mellitus without complications; E78.5 Hyperlipidemia, unspecified; K21.9 Gastro-esophageal reflux disease without esophagitis; W19.XXXA Unspecified fall, initial encounter; Z85.51 Personal history of malignant neoplasm of bladder; Z79.84 Long term (current) use of oral hypoglycemic drugs; Z91.81 History of falling; Z93.2 Ileostomy status

== ENCOUNTER 2023-10-20 01:25 | Inpatient (IN) | payer MEDICARE, OTHER ==
[~2023-10-20] VITALS: Ht 162.6 cm; Wt 94.4 kg
[2023-10-20] VITALS (22 sets, daily range): BP systolic 83–123; BP diastolic 48–70
[~2023-10-20 01:25] MED LIST changes: +ALDACTONE25 MG PO; +ALDACTONE50 MG PO; +AMOX/K CLAV875 M1 PO; +CEFDINIR300 MG PO; +CONSTULOSE10 GM/15 M PO; +KLOR-CON M2020 MEQ PO; +LASIX 20 MG TAB20 MG PO; +LOPRESSOR25 M1 PO; +MIDODRINE5 MG PO; +OMEPRAZOLE DR40 MG PO; +OMNICEF300 MG PO; +PREDNISONE20 MG PO; -PRILOSEC20 MG/CAP PO; +SODIUM BICARBI650 MG PO; +VITAMIN D-32000 UNI1 PO
[2023-10-20] MEDS ORDERED: LACTULOSE 20 GM/30 ML UDC PO ONE (01:40)
[2023-10-20] MEDS ORDERED: SODIUM POLYSTYRENE SULFONATE 15 G/BTL POWDER PO ONE (01:40)
[2023-10-20 02:00] LABS: BASO% 0.2 % (0-3); EOS% 5.5 % (0-8); HEMATOCRIT 24.3 % (37.0-47.0); HEMOGLOBIN 8.2 g/dl (12.0-16.0); IMMATURE GRANULOCYTES 0.4 % (0.0-5.0); LYMPH% 14.3 % (15-41); MEAN CELL VOLUME 94.6 fL CALC (80.0-100.0); MEAN CORPUSCULAR HGB 31.9 pG CALC (26.0-32.0); MEAN CORPUSCULAR HGB CONC 33.7 g/dL CAL (32.0-36.0); MONO% 12.3 % (2-13); NEUT# 5.76 thou/uL (2.00-7.15); NEUT% 67.3 % (42-76); RED BLOOD COUNT 2.57 mill/uL (4.20-5.60); RED CELL DISTRI WIDTH 16.2 % (11.5-15.5)
[2023-10-20 02:14] LABS: INTERNATIONAL NORMALIZED RATIO 1.3 RATIO (0.7-1.3)
[2023-10-20 02:15] LABS: ALBUMIN 2.3 g/dL (3.2-5.0); BILIRUBIN, TOTAL 2.7 mg/dL (0.02-1.3); CREATININE 1.5 mg/dL (0.5-1.0); MAGNESIUM 1.8 mg/dL (1.6-2.3); POTASSIUM 3.5 mmol/l (3.5-5.1); TOTAL PROTEIN 5.1 g/dL (6.3-8.2)
[2023-10-20 02:16] LABS: PROTHROMBIN TIME 12.3 SECONDS (9.0-12.5)
[2023-10-20] MEDS ORDERED: LIDOCAINE HCL 2 % JELLY TOP ONE (03:00)
[2023-10-20] MEDS ORDERED: ALUM & MAG HYDROX-SIMETHICONE 30 ML PO PRN (03:05)
[2023-10-20] MEDS ORDERED: MAGNESIUM HYDROXIDE 30 ML UDC PO PRN ×2 (03:05→05:25)
[2023-10-20] MEDS ORDERED: ONDANSETRON HCl 4 MG/2 ML SDV IV PRN (03:05)
[2023-10-20] MEDS ORDERED: ONDANSETRON 4 MG/TAB ODT PO PRN (03:05)
[2023-10-20] MEDS ORDERED: FAMOTIDINE 10MG/ML 2ML SDV IV PRN (03:05)
[2023-10-20] MEDS ORDERED: IBUPROFEN 800 MG/TAB PO PRN (03:05)
[2023-10-20] MEDS ORDERED: ENOXAPARIN SODIUM 40 MG/0.4 ML SYR SC SCH (04:30)
[2023-10-20] MEDS ORDERED: SODIUM CHLORIDE 0.9% 1,000 ML IV PRN (05:25)
[2023-10-20] MEDS ORDERED: DEXTROSE 250 ML IV PRN (05:30)
[2023-10-20] MEDS ORDERED: LACTULOSE 20 GM/30 ML UDC VT SCH (06:00)
[2023-10-20] MEDS ORDERED: LACTULOSE 20 GM/30 ML UDC PO SCH (06:00)
[2023-10-20] MEDS ORDERED: INSULIN LISPRO 100 UNITS/ML ML SC SCH (07:00)
[2023-10-20] MEDS ORDERED: MIDODRINE HCL 5 MG TAB PO SCH (09:00)
[2023-10-20] MEDS ORDERED: SPIRONOLACTONE 25 MG/TAB PO SCH (09:00)
[2023-10-20] MEDS ORDERED: PANTOPRAZOLE SODIUM Sesquihydr 40 MG/TAB PO SCH (09:00)
[2023-10-20] MEDS ORDERED: SODIUM BICARBONATE 650 MG TAB PO SCH (09:00)
[2023-10-20] MEDS ORDERED: FUROSEMIDE 40 MG/TAB PO SCH (09:00)
[2023-10-20] MEDS ORDERED: METOPROLOL TARTRATE 25 MG/TAB PO SCH (09:00)
[2023-10-20] MEDS ORDERED: FUROSEMIDE 40 MG/4 ML SDV IV SCH (17:00)
[2023-10-20] MEDS ORDERED: NYSTATIN 1500 MU/BTL TOP SCH (21:00)
[2023-10-21] VITALS (41 sets, daily range): BP systolic 61–114; BP diastolic 20–71
[2023-10-21 06:10] LABS: BASO% 0.4 % (0-3); EOS% 5.7 % (0-8); HEMATOCRIT 22.5 % (37.0-47.0); HEMOGLOBIN 7.7 g/dl (12.0-16.0); IMMATURE GRANULOCYTES 0.2 % (0.0-5.0); LYMPH% 16.3 % (15-41); MEAN CELL VOLUME 94.9 fL CALC (80.0-100.0); MEAN CORPUSCULAR HGB 32.5 pG CALC (26.0-32.0); MEAN CORPUSCULAR HGB CONC 34.2 g/dL CAL (32.0-36.0); MONO% 9.3 % (2-13); NEUT# 3.81 thou/uL (2.00-7.15); NEUT% 68.1 % (42-76); RED BLOOD COUNT 2.37 mill/uL (4.20-5.60); RED CELL DISTRI WIDTH 16.2 % (11.5-15.5)
[2023-10-21 06:24] LABS: ALBUMIN 2.2 g/dL (3.2-5.0); BILIRUBIN, TOTAL 3.5 mg/dL (0.02-1.3); CREATININE 1.4 mg/dL (0.5-1.0); MAGNESIUM 1.7 mg/dL (1.6-2.3); POTASSIUM 3.1 mmol/l (3.5-5.1); TOTAL PROTEIN 4.8 g/dL (6.3-8.2)
[2023-10-21] MEDS ORDERED: POTASSIUM CHLORIDE 20MEQ 100 ML IV SCH (07:30)
[2023-10-21] MEDS ORDERED: NYSTATIN 1500 MU/BTL TOP SCH ×2 (13:00)
[2023-10-21 15:56] LABS: BASO% 0.2 % (0-3); HEMATOCRIT 25.3 % (37.0-47.0); HEMOGLOBIN 8.1 g/dl (12.0-16.0); IMMATURE GRANULOCYTES 0.2 % (0.0-5.0); LYMPH% 11.5 % (15-41); MEAN CELL VOLUME 97.3 fL CALC (80.0-100.0); MEAN CORPUSCULAR HGB 31.2 pG CALC (26.0-32.0); MONO% 11.7 % (2-13); NEUT# 6.02 thou/uL (2.00-7.15); NEUT% 69.4 % (42-76); RED BLOOD COUNT 2.6 mill/uL (4.20-5.60); RED CELL DISTRI WIDTH 16.2 % (11.5-15.5)
[2023-10-21 18:56] LABS: URINE BILIRUBIN - DIPSTICK Negative (NEGATIVE); URINE BLOOD DIPSTICK Trace-intact (NEGATIVE); URINE GLUCOSE - DIPSTICK Negative (NEGATIVE); URINE KETONE Negative (NEGATIVE); URINE LEUK ESTERASE Negative (NEGATIVE); URINE NITRITE - DIPSTICK Negative (Negative); URINE PROTEIN - DIPSTICK 100 mg/dL (NEG-TRACE); URINE UROBILINOGEN - DIPSTICK 0.2 E.U./dL (0.2)
[2023-10-21 18:58] LABS: URINE COLOR Yellow
[2023-10-21 19:05] LABS: URINE RBC 0-2 RBC/hpf (0-5); URINE WBC 0-2 WBC/hpf (0-5)
[2023-10-21 19:06] LABS: URINE YEAST MODERATE hpf
[2023-10-21] MEDS ORDERED: ENOXAPARIN SODIUM 40 MG/0.4 ML SYR SC SCH (21:00)
[2023-10-22] VITALS (35 sets, daily range): BP systolic 87–114; BP diastolic 32–57
[2023-10-22 05:48] LABS: BASO% 0.6 % (0-3); EOS% 7.5 % (0-8); HEMATOCRIT 24.3 % (37.0-47.0); HEMOGLOBIN 8.1 g/dl (12.0-16.0); IMMATURE GRANULOCYTES 0.3 % (0.0-5.0); LYMPH% 14.2 % (15-41); MEAN CELL VOLUME 94.9 fL CALC (80.0-100.0); MEAN CORPUSCULAR HGB 31.6 pG CALC (26.0-32.0); MEAN CORPUSCULAR HGB CONC 33.3 g/dL CAL (32.0-36.0); MONO% 9.5 % (2-13); NEUT# 4.74 thou/uL (2.00-7.15); NEUT% 67.9 % (42-76); RED BLOOD COUNT 2.56 mill/uL (4.20-5.60); RED CELL DISTRI WIDTH 16.1 % (11.5-15.5)
[2023-10-22 06:08] LABS: ALBUMIN 2.1 g/dL (3.2-5.0); BILIRUBIN, TOTAL 2.2 mg/dL (0.02-1.3); CREATININE 1.5 mg/dL (0.5-1.0); MAGNESIUM 1.7 mg/dL (1.6-2.3); POTASSIUM 3.3 mmol/l (3.5-5.1); TOTAL PROTEIN 4.8 g/dL (6.3-8.2)
[2023-10-22] MEDS ORDERED: PATIENT' OWN MED 1 EA DOSE PO SCH ×2 (09:00→11:30)
[2023-10-22] MEDS ORDERED: METOPROLOL TARTRATE 25 MG/TAB PO SCH (09:00)
[2023-10-23] VITALS (24 sets, daily range): BP systolic 89–124; BP diastolic 38–60
[2023-10-23 05:27] LABS: HEMOGLOBIN 7.8 g/dl (12.0-16.0); MEAN CELL VOLUME 94.7 fL CALC (80.0-100.0); MEAN CORPUSCULAR HGB 32.1 pG CALC (26.0-32.0); MEAN CORPUSCULAR HGB CONC 33.9 g/dL CAL (32.0-36.0); RED BLOOD COUNT 2.43 mill/uL (4.20-5.60); RED CELL DISTRI WIDTH 16.3 % (11.5-15.5)
[2023-10-23 05:34] LABS: INTERNATIONAL NORMALIZED RATIO 1.4 RATIO (0.7-1.3); PROTHROMBIN TIME 12.8 SECONDS (9.0-12.5)
[2023-10-23 05:38] LABS: ALBUMIN 2.1 g/dL (3.2-5.0); CREATININE 1.4 mg/dL (0.5-1.0); MAGNESIUM 1.7 mg/dL (1.6-2.3); TOTAL PROTEIN 4.6 g/dL (6.3-8.2)
[2023-10-23 05:41] LABS: BILIRUBIN, TOTAL 3.2 mg/dL (0.02-1.3)
[2023-10-24] VITALS (20 sets, daily range): BP systolic 99–126; BP diastolic 43–65
[2023-10-24 05:50] LABS: HEMATOCRIT 22.9 % (37.0-47.0); HEMOGLOBIN 7.7 g/dl (12.0-16.0); MEAN CELL VOLUME 96.2 fL CALC (80.0-100.0); MEAN CORPUSCULAR HGB 32.4 pG CALC (26.0-32.0); MEAN CORPUSCULAR HGB CONC 33.6 g/dL CAL (32.0-36.0); RED BLOOD COUNT 2.38 mill/uL (4.20-5.60); RED CELL DISTRI WIDTH 16.4 % (11.5-15.5)
[2023-10-24 06:13] LABS: BILIRUBIN, TOTAL 2.3 mg/dL (0.02-1.3); CREATININE 1.3 mg/dL (0.5-1.0); MAGNESIUM 1.8 mg/dL (1.6-2.3); TOTAL PROTEIN 4.6 g/dL (6.3-8.2)
[2023-10-24] MEDS ORDERED: POTASSIUM CHLORIDE 20MEQ 100 ML IV SCH (08:00)
[2023-10-24] MEDS ORDERED: Pantoprazole Sodium 40 MG VIAL (Protonix) IV SCH (10:30)
== END 2023-10-24 21:00 | disposition short-term general hospital (02) | DRG 442 ==
LOC: ED 01:25 → ED-I 02:39 → ED 03:03 → ICU 03:04
PROVIDERS: Family Medicine; ADMIT Student in an Organized Health Care Education/Training Program; ATTEND Internal Medicine
DX: K76.82 Hepatic encephalopathy (principal); D61.818 Other pancytopenia; E72.20 Disorder of urea cycle metabolism, unspecified; N17.9 Acute kidney failure, unspecified; E87.1 Hypo-osmolality and hyponatremia; K74.60 Unspecified cirrhosis of liver; E11.65 Type 2 diabetes mellitus with hyperglycemia; I10 Essential (primary) hypertension; E87.6 Hypokalemia; K21.9 Gastro-esophageal reflux disease without esophagitis; D32.0 Benign neoplasm of cerebral meninges; Z85.51 Personal history of malignant neoplasm of bladder; Z79.84 Long term (current) use of oral hypoglycemic drugs; Z90.6 Acquired absence of other parts of urinary tract; Z93.6 Other artificial openings of urinary tract status; Z86.79 Personal history of other diseases of the circulatory system
CPT/HCPCS: J1650; S0164